=== PATIENT | female | born 1995 | race Caucasian/White ===

== ENCOUNTER 2020-02-17 12:37 | Emergency (ER) | payer OTHER ==
[~2020-02-17] VITALS: Ht 162.6 cm; Wt 68.5 kg
[2020-02-17 12:50] VITALS: BP 109/65
[2020-02-17] MEDS ORDERED: TETANUS, DIPHTHERIA, PERTUSSIS VAC/PF 0.5ML (>7YR OLD) IM ONE (14:00)
[2020-02-17] MEDS ORDERED: IBUPROFEN 600MG TABLET PO ONE (14:00)
[2020-02-17] MEDS ORDERED: AMOXICILLIN/POTASSIUM CLAVULANATE 875/125MG TAB PO ONE (14:00)
== END 2020-02-17 14:36 | disposition home or self-care (01) ==
LOC: ER 13:27
DX: S01.452A Open bite of left cheek and temporomandibular area, initial encounter (principal); S03.2XXA Dislocation of tooth, initial encounter; Y04.1XXA Assault by human bite, initial encounter; Y93.89 Activity, other specified; Y92.89 Other specified places as the place of occurrence of the external cause; Y07.03 Male partner, perpetrator of maltreatment and neglect; Z23 Encounter for immunization
CPT/HCPCS: 90471; 90715; 99283